=== PATIENT | male | born 1985 | race Caucasian/White ===

== ENCOUNTER 2021-04-29 16:26 | Outpatient (CLI) | payer MEDICAID | END 2021-04-29 23:59 | disposition home or self-care (01) | LOC: RAD 16:26 → EDSEX 16:26 → RAD 23:59 | PROVIDERS: ATTEND Nurse Practitioner Family | DX: I86.1 Scrotal varices (principal); N50.3 Cyst of epididymis; N50.811 Right testicular pain | CPT/HCPCS: 76870 ==